=== PATIENT | male | born 1980 | race Caucasian/White ===

== ENCOUNTER → 2016-03-04 | Outpatient (CLI) | payer BC ==
--- NOTE | 2016-03-04 11:29 | KCIC ---
PROCEDURE Two-view chest. HISTORY Cough, fatigue, fever, and chills x4 days. COMPARISON No comparison. FINDINGS The cardiomediastinal silhouette is normal. There is mild left lower lobe retrocardiac linear airspace disease. Lungs otherwise clear. No pleural effusion or pneumothorax. No acute bone abnormality. IMPRESSION Mild left lower lobe airspace disease. Electronically signed by: Arvin White MD (Mar 04, 2016 11:29:05)
== END | disposition home or self-care (01) ==
LOC: KCIC 11:10
PROVIDERS: ATTEND Nurse Practitioner Family
DX: R53.83 Other fatigue (principal); R50.9 Fever, unspecified; R05 Cough
CPT/HCPCS: 71020

== ENCOUNTER → 2017-04-07 | Outpatient (CLI) | payer BC | END | disposition home or self-care (01) | LOC: KCIC CT 13:10 | DX: J32.4 Chronic pansinusitis (principal) | CPT/HCPCS: 70486 ==